=== PATIENT | female | born 1965 | race Caucasian/White ===

== ENCOUNTER 2016-06-26 18:15 | Emergency (ER) | payer OTHER ==
[2016-06-26] MEDS ORDERED: Sodium Chloride 0.9% 10 ML Syringe FLUSH PRN (18:43)
[2016-06-26 19:17] LABS: CHLORIDE,CL 100 mmol/L (101-111); SODIUM,NA 135 mmol/L (135-145)
[2016-06-26 19:39] VITALS: BP 150/72
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
--- NOTE | 2016-08-10 12:58 | EKG ---
06/26/2016 - ANNAMARIE SIERRA - Twelve-lead EKG shows normal sinus rhythm with first-degree AV block. MN interval of 216. Heart rate of 83. No significant ST elevation or ST depression noted on this 12-lead EKG. Nonspecific ST-T wave changes noted on lead V5 and V6. [facility] /[id number]
== END 2016-06-26 20:15 | disposition home or self-care (01) ==
LOC: DL.ED 18:15
DX: I11.9 Hypertensive heart disease without heart failure (principal); J06.9 Acute upper respiratory infection, unspecified; B97.89 Other viral agents as the cause of diseases classified elsewhere; I48.91 Unspecified atrial fibrillation; J45.909 Unspecified asthma, uncomplicated; E66.9 Obesity, unspecified; Z90.49 Acquired absence of other specified parts of digestive tract; Z79.899 Other long term (current) drug therapy; Z88.1 Allergy status to other antibiotic agents; Z88.5 Allergy status to narcotic agent; Z88.8 Allergy status to other drugs, medicaments and biological substances
CPT/HCPCS: 36415; 71020; 80053; 81001; 82150; 82550; 82553; 83690; 83735; 83880; 84443; 84484; 85025; 87081; 87430; 87804; 93005; 99284; J7050

== ENCOUNTER 2019-06-02 07:00 | Day surgery (SDC) | payer OTHER ==
[~2019-06-02 07:00] MED LIST: Midazolam 1 MG/ML 2 ML SDV ONE; fentaNYL 100 MCG/2 ML SDV ONE
[2019-06-02] MEDS ORDERED: Midazolam 1 MG/ML 2 ML SDV IV ONE ×7 (07:01→07:54)
[2019-06-02] MEDS ORDERED: fentaNYL 100 MCG/2 ML SDV IV ONE ×4 (07:01→07:58)
[2019-06-02] MEDS ORDERED: Dextrose 5%-0.45% NaCl 1,000 ML IV SCH (07:30)
--- NOTE | 2019-06-02 10:46 | OR ---
DATE: 06/02/2019 PREOPERATIVE DIAGNOSIS: Positive Cologuard test. POSTOPERATIVE DIAGNOSIS: Positive Cologuard test. PROCEDURE: Total colonoscopy. ANESTHESIA: Conscious sedation with IV Versed and fentanyl. SPECIMEN: None. OPERATIVE FINDINGS: Normal colonoscopy. RECOMMENDATIONS: Followup screening colonoscopy in 10 years or sooner for symptoms. INDICATION FOR PROCEDURE: This 54-year-old female presents for evaluation of a positive Cologuard test. DESCRIPTION OF PROCEDURE: After adequate preparation, a colonoscope was inserted into the rectum. In the mid sigmoid colon, was very difficult to pass the scope through the sigmoid. It caused moderate amount of being uncomfortable for the patient and I did multiple manipulations before I was finally able to pass the scope through an area of the sigmoid that would not straighten out. I was then easily able to pass the scope all the way to the cecum. Confirmation of the cecum was made by visualization of the ileocecal valve, the light shining through the right lower quadrant and by palpation. The bowel prep was excellent. On withdrawal of the scope, no abnormalities were noted. There were no masses that would indicate a positive Cologuard. Rectal and anal examination were normal by scope. Air was suctioned from the colon and the scope removed. [facility] /[id number]
[2019-06-02 10:53] VITALS: BP 134/59; PULSE 67
== END 2019-06-02 10:18 | disposition home or self-care (01) ==
LOC: DL.ENDO 07:00
PROVIDERS: ATTEND Surgery
DX: R19.5 Other fecal abnormalities (principal); E78.5 Hyperlipidemia, unspecified; K21.9 Gastro-esophageal reflux disease without esophagitis; J44.9 Chronic obstructive pulmonary disease, unspecified; E66.9 Obesity, unspecified; Z68.39 Body mass index [BMI] 39.0-39.9, adult; Z88.1 Allergy status to other antibiotic agents; Z88.5 Allergy status to narcotic agent; Z88.8 Allergy status to other drugs, medicaments and biological substances; Z90.49 Acquired absence of other specified parts of digestive tract; Z79.899 Other long term (current) drug therapy; Z98.890 Other specified postprocedural states
CPT/HCPCS: 45378; J2250; J3010; J7042; G0121

== ENCOUNTER 2020-12-09 11:10 | Emergency (ER) | payer OTHER ==
[2020-12-09] MEDS ORDERED: Diltiazem 25 MG/5 ML SDV IVPUSH ONE ×2 (11:19→11:40)
[2020-12-09 11:31] VITALS: BP 179/92; PULSE 132
[2020-12-09 11:51] LABS: ANION GAP 14.7 mEq/L (7-13); CHLORIDE,CL 99 mmol/L (98-107); SODIUM,NA 137 mmol/L (136-145)
[2020-12-09 11:52] LABS: AMPHETAMINES,URINE NEGATIVE (NEGATIVE); BARBITURATES,URINE NEGATIVE (NEGATIVE); BENZODIAZEPINE,URINE NEGATIVE (NEGATIVE); MDMA (ECSTASY), URINE NEGATIVE (NEGATIVE); METHADONE,URINE NEGATIVE (NEGATIVE); METHAMPHETAMINES,URINE NEGATIVE (NEGATIVE); OPIATES,URINE NEGATIVE (NEGATIVE); OXYCODONE,URINE NEGATIVE (NEGATIVE); PHENCYCLIDINE,URINE NEGATIVE (NEGATIVE); TCA,URINE NEGATIVE (NEGATIVE)
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
== END 2020-12-09 13:18 | disposition home or self-care (01) ==
LOC: DL.ED 11:10
DX: I48.0 Paroxysmal atrial fibrillation (principal); J44.9 Chronic obstructive pulmonary disease, unspecified; E66.9 Obesity, unspecified; Z68.41 Body mass index [BMI] 40.0-44.9, adult; Z88.0 Allergy status to penicillin; Z88.1 Allergy status to other antibiotic agents; Z88.5 Allergy status to narcotic agent; Z91.013 Allergy to seafood; Z88.8 Allergy status to other drugs, medicaments and biological substances; Z79.82 Long term (current) use of aspirin; Z79.899 Other long term (current) drug therapy
CPT/HCPCS: 36415; 80053; 80305; 80307; 81003; 83605; 83880; 84484; 85025; 93005; 96374; 99285; J3490